=== PATIENT | male | born 1995 | race Caucasian/White ===

== ENCOUNTER 2017-07-13 02:47 | Observation (INO) | payer OTHER ==
[~2017-07-13] VITALS: Ht 177.8 cm; Wt 83.5 kg
[2017-07-13 03:15] LABS: HEMATOCRIT 43.8 % (42-52); MEAN CELL VOLUME 87.1 fL (80-100); MEAN CORPUSCULAR HEMOGLOBIN 30.2 pg (25-34); MEAN CORPUSCULAR HGB CONC 34.7 g/dl (32-36); MEAN PLATELET VOLUME 9.7 fL (7.4-10.4); PLATELET COUNT 170 K/uL (130-400); RED BLOOD COUNT 5.03 M/uL (4.7-6.1); WHITE BLOOD COUNT 8.03 K/uL (4.8-10.8)
--- NOTE | 2017-07-13 03:32 | EMERGENCY ROOM VISIT NOTE ---
History Report prepared by Arelis: Janine Freeman Under the Supervision of: Dr. Marah Roberts D.O. First contact with patient: 02:52 Chief Complaint: ALCOHOL OVERDOSE Stated Complaint: UNRESPONSIVE ALCOHOL OVERDOSE Nursing Triage Summary: patient found outside the [place] from alcohol overdose. brought in by EMS and [place] police. 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 The patient presents to the ED by EMS. He was found unresponsive outside of his apartment door. He was found to be bradycardic with a heart rate in the 40s. He has not regained consciousness at all during transport. The history is limited due to the patient's intoxication. Source of History: EMS History Limited By: intoxication Onset: SYSTEMS TECHNOLOGIST Position: other (global) Quality: other (alcohol intoxication) Timing: other (persistent) Note: Pt is bradycardic. Review of Systems Limited due to the patient's intoxication. Past Medical & Surgical Medical Problems: (1) Alcohol intoxication (2) Rhabdomyolysis Family History Unable to obtain due to patient's intoxication. Social History Smoking Status: Unknown if Ever Smoked Occupation Status: [employer] student Current/Historical Medications Unable to Obtain Active Prescriptions or Reported Meds Allergies Coded Allergies: No Known Allergies (Unverified , 07/13/17) Physical Exam Vital Signs Date Time Temp Pulse Resp B/P (MAP) Pulse Ox O2 Delivery O2 Flow Rate FiO2 07/13/17 05:03 36.0 74 16 113/62 94 07/13/17 03:19 48 07/13/17 03:10 35.1 44 16 106/40 94 Room Air Physical Exam General: Unresponsive, smells of alcohol. HEENT: Head - normocephalic and atraumatic Pupils are 6mm and nonreactive to light. Extraocular eye muscles are intact, and sclera are anicteric. Nose - moist nasal mucosa without discharge. Mouth - moist buccal mucosa. Oropharynx is nonerythematous and there is no tonsillar exudate or edema noted. Neck: Supple; no JVD, nuchal rigidity, cervical lymphadenopathy. Heart: Bradycardic rate and regular rhythm. There is a normal S1 and S2 with no murmurs, clicks, or gallops appreciated. Lungs: Clear to auscultation bilaterally with no wheezes, rales, or rhonchi. Abdomen: Soft, completely nontender, nondistended, with good bowel sounds. There are no palpable pulsatile masses or hepatosplenomegaly. There is no guarding, rigidity, or rebound noted. Extremities: No evidence of cyanosis, clubbing, or edema. There are easily palpable peripheral pulses. Skin: cold to touch and dry with good turgor and no rashes. Neuro: He will grunt to painful stimuli Medical Decision & Procedures Laboratory Results 07/13/17 03:07 07/13/17 03:07 Test 07/13/17 03:07 07/13/17 03:40 Red Blood Count 5.03 M/uL (4.7-6.1) Mean Corpuscular Volume 87.1 fL (80-100) Mean Corpuscular Hemoglobin 30.2 pg (25-34) Mean Corpuscular Hemoglobin Concent 34.7 g/dl (32-36) RDW Standard Deviation 39.3 fL (36.4-46.3) RDW Coefficient of Variation 12.3 % (11.5-14.5) Mean Platelet Volume 9.7 fL (7.4-10.4) Anion Gap 6.0 mmol/L (3-11) Estimated GFR () 118.7 Estimated GFR (Non- 102.4 BUN/Creatinine Ratio 18.5 (10-20) Calcium Level 8.4 mg/dl (8.5-10.1) Total Bilirubin 1.3 mg/dl (0.2-1) Direct Bilirubin 0.2 mg/dl (0-0.2) Aspartate Amino Transf (AST/SGOT) 72 U/L (15-37) Alanine Aminotransferase (ALT/SGPT) 43 U/L (12-78) Alkaline Phosphatase 58 U/L (45-117) Total Creatine Kinase 1675 U/L (39-308) Creatine Kinase MB 8.7 ng/ml (0.5-3.6) Creatine Kinase MB Ratio 0.5 (0-3.0) Troponin I < 0.015 ng/ml (0-0.045) Total Protein 7.4 gm/dl (6.4-8.2) Albumin 4.0 gm/dl (3.4-5.0) Salicylates Level < 1.7 mg/dl (2.8-20) Acetaminophen Level < 2 ug/ml (10-30) Ethyl Alcohol mg/dL 261.0 mg/dl (0-3) Urine Opiates Screen NEG (NEG) Urine Methadone, Qualitative NEG (NEG) Urine Barbiturates NEG (NEG) Urine Phencyclidine (PCP) Level NEG (NEG) Ur Amphetamine/Methamphetamine NEG (NEG) MDMA (Ecstasy) Screen NEG (NEG) Urine Benzodiazepines Screen NEG (NEG) Urine Cocaine Metabolite NEG (NEG) Urine Marijuana (THC) POS (NEG) Laboratory results per my review. Medications Administered Medications (Trade) Dose Ordered Sig/Portia Route Start Time Stop Time Status Last Admin Dose Admin Sodium Chloride 1,000 ml @ 250 mls/hr Q4H STAT IV 07/13/17 05:10 07/13/17 06:39 DC 07/13/17 05:10 250 MLS/HR Sodium Chloride 1,000 ml @ 999 mls/hr Q1H1M STAT IV 07/13/17 05:10 07/13/17 06:10 DC 07/13/17 05:10 999 MLS/HR Procedure Medications: NSS 1000 ml @ 999 mls/hr IV, NSS 1000 ml @ 250 mls/hr IV. ECG Indication: bradycardia Rate (beats per minute): 46 Rhythm: sinus bradycardia Findings: no acute ischemic change, no ectopy, other ED Course 0251: The patient was evaluated in room B12A. A complete history and physical examination were performed. Nursing notes and previous electronic medical records were reviewed. Labs were drawn as above. He was observed on the monitoring engineer and pulse oximeter. He was placed in the prone position to avoid aspiration. The Ty hugger was placed. 0305: I reevaluated the patient. He is hypothermic with a temperature of 35. He will get warm saline. 0457: I reevaluated the patient. He woke up and answered yes or no questions. He did not answer any other questions. Repeat rectal temperature was 36. He will be evaluated for further management. 0503: I discussed the patient's case with Dr. Milian, [facility] hospitalist. The patient will be evaluated for further management. 0510: NSS 1000 ml @ 250 mls/hr IV. Medical Decision The patient is a 21 year old male who presents to the ED with alcohol intoxication. Differential diagnosis includes alcohol overdose, drug intoxication, head injury, hypoglycemia, hypothermia. Labs: normal white count, stable H&H, BUN 19, creatinine 1, glucose 92, total bilirubin 1.3, AST 72, total CK 1675, alcohol 261, urine tox screen positive for marijuana, Tylenol and aspirin levels negative. This is a 21-year-old male patient who is brought to the emergency department after consuming too much alcohol. He was completely unresponsive upon arrival here in the emergency department. He was noted to be hypothermic. A bear hugger was applied. The patient had an elevated total CPK concerning for rhabdomyolysis. Blood Pressure Screening Patient's blood pressure: Normal blood pressure Blood pressure disposition: Did not require urgent referral Consults Time Called: 0502 Consulting Physician: Dr. Milian [facility] hospitalist Returned Call: [phone] Discussed the patient's case. The patient will be evaluated for further management. Impression Primary Impression: Alcohol overdose Additional Impressions: Rhabdomyolysis Hypothermia Scribe Attestation The scribe's documentation has been prepared under my direction and personally reviewed by me in its entirety. I confirm that the note above accurately reflects all work, treatment, procedures, and medical decision making performed by me. Departure Information Dispostion Being Evaluated By Hospitalist Prescriptions Unable to Obtain Active Prescriptions or Reported Meds Referrals No Doctor, Assigned (PCP) Patient Instructions My [facility] Problem Qualifiers Primary Impression: Alcohol overdose Encounter type: initial encounter Injury intent: accidental or unintentional Qualified Codes: T51.91XA - Toxic effect of unspecified alcohol , accidental (unintentional), initial encounter Additional Impressions: Rhabdomyolysis Rhabdomyolysis type: traumatic Encounter type: initial encounter Qualified Codes: T79.6XXA - Traumatic ischemia of muscle, initial encounter Hypothermia Encounter type: initial encounter Qualified Codes: T68.XXXA - Hypothermia, initial encounter
[2017-07-13 03:33] LABS: ALT/SGPT 43 U/L (12-78); AST/SGOT 72 U/L (15-37); BLOOD UREA NITROGEN 19 mg/dl (7-18); BUN/CREATININE RATIO 18.5 (10-20); CALCIUM 8.4 mg/dl (8.5-10.1); CARBON DIOXIDE 26 mmol/L (21-32); CHLORIDE 108 mmol/L (98-107); CREATININE 1.05 mg/dl (0.60-1.40); GLUCOSE 92 mg/dl (70-99); POTASSIUM 3.4 mmol/L (3.5-5.1); SODIUM 140 mmol/L (136-145)
[2017-07-13 03:48] LABS: ALKALINE PHOSPHATASE 58 U/L (45-117); CKMB/CK RATIO 0.5 (0-3.0)
[2017-07-13 03:57] LABS: ACETAMINOPHEN < 2 ug/ml (10-30)
[2017-07-13 04:17] LABS: BENZODIAZEPINE, URINE NEG (NEG); COCAINE,URINE NEG (NEG); PHENCYCLIDINE, URINE NEG (NEG)
[2017-07-13] MEDS ORDERED: SODIUM CHLORIDE 0.9% 1000ML 1,000 ML IV STA ×2 (05:10)
[2017-07-13] MEDS ORDERED: MAGNESIUM HYDROXIDE SUSP 30 ML UDC PO PRN (05:30)
[2017-07-13] MEDS ORDERED: POLYETHYLENE (MIRALAX) 17 GM PACK PO PRN (05:30)
[2017-07-13] MEDS ORDERED: ONDANSETRON INJ 2 MG/ML 2 ML VIAL IV PRN (05:30)
[2017-07-13] MEDS ORDERED: ACETAMINOPHEN 325 MG TAB PO PRN (05:30)
[2017-07-13] MEDS ORDERED: ALUMINUM/MAGNESIUM/SIMETH (MAALOX MAX) 30 ML UDC PO PRN (05:30)
--- NOTE | 2017-07-13 05:40 | History and Physical ---
History & Physical Date & Time of Service: Jul 13, 2017 at 05:32 Chief Complaint: Unresponsive Alcohol Overdose Primary Care Physician: No Doctor, Assigned History of Present Illness Source: hospital records The patient is a 21-year-old male who presents to the emergency room by EMS. The patient is obtunded secondary to ethanol consumption therefore a history cannot be obtained directly from the patient. Per signout from the emergency department, the patient was apparently found outside of his dorm room collapsed with his kidneys in his hand. When he came to the emergency room he was found to be hypothermic. A urine drug screen was positive for marijuana. Labs revealed an elevated CPK in the 1600s. Decision was made to admit the patient for rehydration and to trend CPK levels. Past Medical/Surgical History Unknown Family History Unknown Social History A social history could not be obtained for the patient due to his current state. Smoking Status: Unknown if Ever Smoked Smokeless Tobacco Use: Unknown Occupational Status: [employer] student Immunizations History of Influenza Vaccine: Unknown History of Tetanus Vaccine?: Unknown History of Pneumococcal: Unknown History of Hepatitis B Vaccine: Unknown Home Medications Unable to Obtain Active Prescriptions or Reported Meds Review of Systems The review of systems could not be obtained by the patient due to his obtunded state Physical Exam Vital Signs Date Time Temp Pulse Resp B/P (MAP) Pulse Ox O2 Delivery O2 Flow Rate FiO2 07/13/17 05:03 36.0 74 16 113/62 94 07/13/17 03:19 48 07/13/17 03:10 35.1 44 16 106/40 94 Room Air General Appearance: WD/WN, no apparent distress Head: normocephalic, atraumatic Eyes: PERRL ENT: normal ENT inspection Neck: supple, no adenopathy Respiratory/Chest: lungs clear, no respiratory distress Cardiovascular: regular rate, rhythm, no gallop, no murmur Abdomen/GI: normal bowel sounds, non tender, soft Back: normal inspection, no CVA tenderness Extremities/Musculoskelatal: no calf tenderness, no pedal edema Neurologic/Psych: + pertinent finding (obtunded) Skin: normal color, warm/dry, no rash Lymphatic: no adenopathy Diagnostics Laboratory Results Results Past 24 Hours Test 07/13/17 03:07 07/13/17 03:40 Range/Units White Blood Count 8.03 4.8-10.8 K/uL Red Blood Count 5.03 4.7-6.1 M/uL Hemoglobin 15.2 14.0-18.0 g/dL Hematocrit 43.8 42-52 % Mean Corpuscular Volume 87.1 80-100 fL Mean Corpuscular Hemoglobin 30.2 25-34 pg Mean Corpuscular Hemoglobin Concent 34.7 32-36 g/dl RDW Standard Deviation 39.3 36.4-46.3 fL RDW Coefficient of Variation 12.3 11.5-14.5 % Platelet Count 170 130-400 K/uL Mean Platelet Volume 9.7 7.4-10.4 fL Sodium Level 140 136-145 mmol/L Potassium Level 3.4 3.5-5.1 mmol/L Chloride Level 108 98-107 mmol/L Carbon Dioxide Level 26 21-32 mmol/L Anion Gap 6.0 3-11 mmol/L Blood Urea Nitrogen 19 7-18 mg/dl Creatinine 1.05 0.60-1.40 mg/dl Estimated GFR () 118.7 Estimated GFR (Non- 102.4 BUN/Creatinine Ratio 18.5 10-20 Random Glucose 92 70-99 mg/dl Calcium Level 8.4 8.5-10.1 mg/dl Total Bilirubin 1.3 0.2-1 mg/dl Direct Bilirubin 0.2 0-0.2 mg/dl Aspartate Amino Transf (AST/SGOT) 72 15-37 U/L Alanine Aminotransferase (ALT/SGPT) 43 12-78 U/L Alkaline Phosphatase 58 45-117 U/L Total Creatine Kinase 1675 39-308 U/L Creatine Kinase MB 8.7 0.5-3.6 ng/ml Creatine Kinase MB Ratio 0.5 0-3.0 Troponin I < 0.015 0-0.045 ng/ml Total Protein 7.4 6.4-8.2 gm/dl Albumin 4.0 3.4-5.0 gm/dl Salicylates Level < 1.7 2.8-20 mg/dl Acetaminophen Level < 2 10-30 ug/ml Ethyl Alcohol mg/dL 261.0 0-3 mg/dl Urine Opiates Screen NEG NEG Urine Methadone, Qualitative NEG NEG Urine Barbiturates NEG NEG Urine Phencyclidine (PCP) Level NEG NEG Ur Amphetamine/Methamphetamine NEG NEG MDMA (Ecstasy) Screen NEG NEG Urine Benzodiazepines Screen NEG NEG Urine Cocaine Metabolite NEG NEG Urine Marijuana (THC) POS NEG Impression Assessment and Plan 21 year old male with rhabdomyolysis, hypothermia and alcohol intoxication. Our plan for him is as follows: - Rhabdomyolysis: Trend CPK, repeat level today at noon. IV hydration with NSS + 20 mEq KCl at 200 mL/hr. - Hypothermia: Improved with warmed IV fluids and warming blanket. Continue warming blanket trend temperature curve. - Acute alcohol intoxication: IV hydration as above - Mild hypokalemia: Potassium supplementation and IV fluids. Repeat BMP today at noon. - DVT prophylaxis: SCD, Teds - Level I Full Code - Admission telemetry Attending addendum: I have physically seen this patient, have supervised the medical residents activities, and agree with the H&P unless as otherwise noted. Assessment and Plan: Acute alcohol intoxication/marijuana use/unresponsiveness-- Admitted to medical surgical floor Rehydrated with IV fluids to correct mild hypokalemia and dehydration. Repeat BMP and magnesium level. Mild rhabdomyolysis-- Rehydrated with IV fluids as noted Repeat CK with BMP and magnesium level at noon today. Level of Care Med/Surg Advanced Directives Existing Advance Directive: No Existing Living Will: No Existing Power of Java Software Architect: No Resuscitation Status FULL RESUSCITATION VTE Prophylaxis VTE Risk Assessment Done? Y/N: Yes Risk Level: Moderate Given or contraindicated: SCD's
[2017-07-13] MEDS ORDERED: IV FLUIDS COMPLETED PRN (05:45)
[2017-07-13] MEDS ORDERED: PATIENT'S ALLERGY INFO NEEDS ENTERED SCH (06:15)
[2017-07-13 06:26] VITALS: BP 111/67; PULSE 79; TEMP 36.4; O2SAT 95
[2017-07-13 06:37] VITALS: Ht 177.8 cm; Wt 83.5 kg
[2017-07-13] MEDS: NSS + 20MEQ KCL 1000ML 1,000 ML IV SCH ×2 (07:00→12:00)
[2017-07-13 07:23] VITALS: BP 116/74; PULSE 63; TEMP 36.2; O2SAT 94
[2017-07-13 07:55] LABS: BUN/CREATININE RATIO 14.8 (10-20); CALCIUM 8.5 mg/dl (8.5-10.1); CREATININE 1.04 mg/dl (0.60-1.40); POTASSIUM 3.8 mmol/L (3.5-5.1)
[2017-07-13 08:00] VITALS: O2SAT 94
--- NOTE | 2017-07-13 08:21 | Discharge Instructions ---
Discharge Instructions Date of Service Jul 13, 2017. Admission Reason for Admission: Alcohol Overdose, Rhabdomyolysis Discharge Discharge Diagnosis / Problem: Alcohol overdose, mild rhabdomyolysis Discharge Goals Goal(s): Decrease discomfort, Improve function, Increase independence, Improve disease control, Prevent Disease Progression Activity Recommendations Activity Limitations: resume your previous activity Lifting Limitations: none, gradually increase as tolerated Exercise/Sports Limitations: none, gradually increase as tolerated May Resume Sexual Activity: when tolerated Shower/Bathe: no limitations Driving or Machine Use: no limitations . Instructions / Follow-Up Instructions / Follow-Up You were admitted to [facility] with alcohol abuse and overdose, mild rhabdomyolysis During your stay here you were treated with intravenous fluids, supportive care. Drink plenty of water today to help with re-hydrating yourself, fruit, and vegetables. DO NOT DRINK ALCOHOL! You can be legally charged with an underage and DUI if found to be intoxicated. Medications: None Follow up: - Follow up with [facility] on an as needed basis Current Hospital Diet Patient's current hospital diet: Discharge Diet Recommended Diet: Regular Diet Pending Studies Studies pending at discharge: no Medical Emergencies . Who to Call and When: Medical Emergencies: If at any time you feel your situation is an emergency, please call 911 immediately. . Non-Emergent Contact Non-Emergency issues call your: Primary Care Provider Call Non-Emergent contact if: you have a fever, temperature is above 100.5, your pain is not controlled, you have any medication questions . Past History Medical & Surgical History: (1) Alcohol overdose (2) Alcohol intoxication (3) Rhabdomyolysis . "Provider Documentation" section prepared by Kasey Galarza. . VTE Core Measure Inpt VTE Proph given/why not?: SCD's
[2017-07-13 08:26] VITALS: BP 116/74; PULSE 63; TEMP 36.2; O2SAT 94
--- NOTE | 2017-07-13 08:38 | Discharge Summary ---
Discharge Summary Date of Service Jul 13, 2017. Discharge Summary Admission Date: Jul 13, 2017 at 05:22 Discharge Date: Jul 13, 2017 Discharge Disposition: Home Principal Diagnosis: Alcohol overdose, mild rhabdomyolysis Immunizations: Have You Had Influenza Vaccine: Unknown History of Tetanus Vaccine?: Unknown History of Pneumococcal: Unknown History of Hepatitis B Vaccine: Unknown Medication Reconciliation Medication Profile: Unable to Obtain Active Prescriptions or Reported Meds Discharge Exam The patient was seen and examined this morning. Pt reports doing much better, denies nausea, vomiting, abdminal pain, headache, shakiness. He reports feeling tired. Pt denies falling and injuring himself last night and feels well enough to go home. Pt reports he was drinking with friends in an apartment last night, but cant recall what he was drinking, ie. wine, liquor or beer. Pt notes he typically doesn't drink. He denies family history of alcohol use/abuse. He would like to be discharged to be able to take an exam at 10 am. ROS: Reviewed as above and otherwise 10 points negative. Physical Exam: General Appearance: WD/WN, no apparent distress, + pertinent finding ( discheveled ) Eyes: PERRL, EOMI ENT: hearing grossly normal, pharynx normal Neck: supple, no JVD Respiratory/Chest: lungs clear, no respiratory distress, no accessory muscle use Cardiovascular: regular rate, rhythm, no murmur, normal peripheral pulses Abdomen / GI: normal bowel sounds, non tender, soft Extremities: no calf tenderness, no pedal edema Neurologic/Psychiatric: alert, normal mood/affect, oriented x 3 Skin: normal color, warm/dry Hospital Course History of Present Illness Source: hospital records The patient is a 21-year-old male who presents to the emergency room by EMS. The patient is obtunded secondary to ethanol consumption therefore a history cannot be obtained directly from the patient. Per signout from the emergency department, the patient was apparently found outside of his dorm room collapsed with his kidneys in his hand. When he came to the emergency room he was found to be hypothermic. A urine drug screen was positive for marijuana. Labs revealed an elevated CPK in the 1600s. Decision was made to admit the patient for rehydration and to trend CPK levels. Physical Exam Vital Signs Date Time Temp Pulse Resp B/P (MAP) Pulse Ox O2 Delivery O2 Flow Rate FiO2 07/13/17 05:03 36.0 74 16 113/62 94 07/13/17 03:19 48 07/13/17 03:10 35.1 44 16 106/40 94 Room Air General Appearance: WD/WN, no apparent distress Head: normocephalic, atraumatic Eyes: PERRL ENT: normal ENT inspection Neck: supple, no adenopathy Respiratory/Chest: lungs clear, no respiratory distress Cardiovascular: regular rate, rhythm, no gallop, no murmur Abdomen/GI: normal bowel sounds, non tender, soft Back: normal inspection, no CVA tenderness Extremities/Musculoskelatal: no calf tenderness, no pedal edema Neurologic/Psych: + pertinent finding (obtunded) Skin: normal color, warm/dry, no rash Lymphatic: no adenopathy Hospital Course: Pt was admitted for alcohol intoxication and mild rhabdomyolysis with CPK levels =1600 at time of admission. Pt was mildly hypokalemic at time of admission and was repleted with adequate levels on repeat labs. Pt was administered IV fluids overnight. He woke up and did not show signs of intoxication or withdrawal. Discussion was held regarding cessation of etoh use , and possibilities of being charged with DUI or underage or being held accountable for other legal action. Pt was encouraged to seek help at [facility] if he felt etoh use was becoming a problem, but currently he denies this. Pt was discharged to home in stable condition. Total Time Spent: Greater than 30 minutes This includes examination of the patient, discharge planning, medication reconciliation, and communication with other providers. Discharge Instructions Please refer to the electronic Patient Visit Report (Discharge Instructions) for additional information. Follow-Up Follow up with [facility] as needed.
[2017-07-13] MEDS ORDERED: VANCOMYCIN INJ 1,000 MG in SODIUM CHLORIDE 0.9% 250ML 250 ML IV SCH (09:00)
== END 2017-07-13 12:44 | disposition home or self-care (01) ==
LOC: EDBD 02:47 → C.EDB 02:51 → EDBD 02:51 → C.4E 05:22 → ENRESERV 05:51
PROVIDERS: ADMIT Student in an Organized Health Care Education/Training Program; ATTEND Hospitalist
DX: T51.91XA Toxic effect of unspecified alcohol, accidental (unintentional), initial encounter (principal); M62.82 Rhabdomyolysis